=== PATIENT | male | born 1965 | race Caucasian/White ===

== ENCOUNTER → 2025-02-18 14:39 | Outpatient (REF) | payer SELFPAY | LOC: HWRAD 14:39 | PROVIDERS: ATTENDING PHYSICIAN Family Medicine | DX: Z00.01 Encounter for general adult medical examination with abnormal findings (principal); I10 Essential (primary) hypertension; E78.2 Mixed hyperlipidemia; Z12.5 Encounter for screening for malignant neoplasm of prostate; Z11.1 Encounter for screening for respiratory tuberculosis; R73.9 Hyperglycemia, unspecified | CPT/HCPCS: 75571 ==